=== PATIENT | female | born 1995 | race Two or more races ===

== ENCOUNTER 2019-08-08 17:31 | Emergency (ER) | payer OTHER ==
[~2019-08-08] VITALS: Ht 152.4 cm; Wt 57.2 kg
== END 2019-08-08 22:30 | disposition home or self-care (01) ==
LOC: ER 17:31 → EDBD 17:31 → ER 20:36
DX: O20.0 Threatened abortion (principal)

== ENCOUNTER 2019-08-13 10:44 | Outpatient (CLI) | payer OTHER | END 2019-08-13 10:52 | disposition home or self-care (01) | LOC: LAB 10:44 | DX: Z32.01 Encounter for pregnancy test, result positive (principal) ==

== ENCOUNTER 2019-08-15 11:30 | Outpatient (CLI) | payer OTHER | END 2019-08-15 15:00 | disposition home or self-care (01) | LOC: LAB 11:30 | DX: Z34.00 Encounter for supervision of normal first pregnancy, unspecified trimester (principal) ==

== ENCOUNTER 2019-08-17 15:28 | Emergency (ER) | payer OTHER ==
[~2019-08-17] VITALS: Ht 152.4 cm; Wt 57.2 kg
== END 2019-08-17 21:32 | disposition home or self-care (01) ==
LOC: ER 15:28
DX: O20.8 Other hemorrhage in early pregnancy (principal); Z34.01 Encounter for supervision of normal first pregnancy, first trimester

== ENCOUNTER 2019-08-27 10:31 | Outpatient (CLI) | payer OTHER | END 2019-08-27 11:00 | disposition home or self-care (01) | LOC: SONOGRAMA 10:31 | DX: O02.1 Missed abortion (principal) ==

== ENCOUNTER 2019-08-28 12:47 | Day surgery (SDC) | payer OTHER | END 2019-08-28 19:30 | disposition home or self-care (01) | LOC: CIR.AMB 12:47 | DX: O02.1 Missed abortion (principal) ==